=== PATIENT | male | born 1955 | race Caucasian/White ===

== ENCOUNTER 2018-12-03 05:40 | Inpatient (IN) | payer OTHER ==
[~2018-12-03 05:40] MED LIST: SOD CHLORIDE 0.9% 100 ML, TRANEXAMIC ACID 3,000 MG IRR; TRANEXAMIC ACID 1GM/100ML(PMX) 100 ML IVPB
[2018-12-03] MEDS: DEXAMETHASONE 1 MG TAB PO (06:26)
[2018-12-03] MEDS: GABAPENTIN 300 MG CAP PO ×2 (06:26→20:07)
[2018-12-03] MEDS: SOD CHLORIDE 0.9% 100 ML, TRANEXAMIC ACID 3,000 MG IRR (06:30)
[2018-12-03] MEDS: TRANEXAMIC ACID 1GM/100ML(PMX) 100 ML IVPB (06:30)
[2018-12-03] MEDS ORDERED: MIDAZOLAM 1 MG/ML 2 ML INJ (06:53)
[2018-12-03] MEDS ORDERED: FENTAnyl 50 MCG/ML VIAL (06:54)
[2018-12-03] MEDS ORDERED: SEVOFLURANE 15 MIN (07:00)
[2018-12-03] MEDS: TRANEXAMIC ACID 1GM/100ML(PMX) 100 ML (07:05)
[2018-12-03] MEDS: CEFAZOLIN 2 GM/50 ML (PMX) 50 ML IVPB (07:10)
[2018-12-03] MEDS ORDERED: CA CHLORIDE (GM) 10% 10 ML INJ (07:30)
[2018-12-03] MEDS ORDERED: THROMBIN 5000 UNIT VIAL (07:30)
[2018-12-03] MEDS ORDERED: POLYMYXIN/BACITRACIN 1L IRRIG (07:43)
[2018-12-03] MEDS: BUPIVACAINE 0.5% (SDV) 30 ML, morphine SULFATE (PF) 8 MG, EPINEPHrine 0.3 MG, CLONIDINE... IRR (07:58)
[2018-12-03] MEDS: POLYMYXIN/BACITRACIN 1L IRRIG IRR (07:59)
[2018-12-03] MEDS ORDERED: DEXAMETHASONE 4 MG/ML 5 ML INJ (08:30)
[2018-12-03] MEDS ORDERED: LIDOCAINE 2% (SDV) 5 ML INJ (08:30)
[2018-12-03] MEDS ORDERED: PROPOFOL 20 ML (08:30)
[2018-12-03] MEDS ORDERED: CEFAZOLIN 1 GM INJ (08:30)
[2018-12-03] MEDS ORDERED: ROCURONIUM 50 MG INJ (08:30)
[2018-12-03] MEDS ORDERED: ONDANSETRON 4 MG INJ (08:31)
[2018-12-03] MEDS ORDERED: NEOSTIGMINE 3 MG/3 ML SYRINGE (08:45)
[2018-12-03] MEDS ORDERED: GLYCOPYRROLATE 0.4 MG INJ (08:45)
[2018-12-03] MEDS ORDERED: PHENYLephrine (100 MCG/ML) 10ML SYG (08:47)
[2018-12-03] MEDS ORDERED: NACL 0.9% 3 ML SYG IV (09:00)
[2018-12-03] MEDS ORDERED: NON-FORMULARY/PATIENT OWN MED (Albuterol/Ipratropium* (Combivent Respimat*) 1 PUFF) INHALATION (09:00)
[2018-12-03] MEDS ORDERED: NON-FORMULARY/PATIENT OWN MED (Omeprazole* 20 MG) PO (09:00)
[2018-12-03] MEDS: SENNA/DOCUSATE NA (8.6MG/50MG) TAB PO ×2 (09:00→20:09)
[2018-12-03] MEDS ORDERED: ONDANSETRON 4 MG INJ IV ×2 (09:00→09:30)
[2018-12-03] MEDS ORDERED: ZOLPIDEM 5 MG TAB PO (09:00)
[2018-12-03] MEDS ORDERED: MAGNESIUM HYDROXIDE 30ML CUP PO (09:00)
[2018-12-03] MEDS: ALBUTEROL 18 GM INHALER INH ×2 (09:00→13:00)
[2018-12-03] MEDS ORDERED: DIPHENHYDRAMINE 50 MG INJ IV ×2 (09:00→09:30)
[2018-12-03] MEDS ORDERED: oxyCODONE 5 MG TAB PO (09:00)
[2018-12-03 09:19] LABS: ADD MAN DIFF? NO
[2018-12-03 09:21] LABS: BASOPHIL # 0.1 10^3/ul (0.0-0.1); BASOPHILS % 0.8 % (0.0-2.0); EOSINOPHILS # 0.3 10^3/ul (0.0-0.5); EOSINOPHILS % 3.1 % (0.0-7.0); HEMATOCRIT 37.6 % (42.0-52.0); LYMPHOCYTES # 2.1 10^3/ul (0.8-2.9); LYMPHOCYTES % 21.5 % (15.0-51.0); MEAN CORPUSCULAR HEMOGLOBIN 26.8 pg (29.0-33.0); MEAN CORPUSCULAR HGB CONC 31.9 g/dl (32.0-37.0); MEAN CORPUSCULAR VOLUME 84.1 fl (82.0-101.0); MEAN PLATELET VOLUME 9.7 fl (7.4-10.4); MONOCYTE # 0.3 10^3/ul (0.3-0.9); MONOCYTES % 2.9 % (0.0-11.0); NEUTROPHIL # 7.1 10^3/ul (1.6-7.5); NEUTROPHILS % 71.2 % (39.0-77.0); PLATELET COUNT 317 10^3/UL (140-415); RED BLOOD COUNT 4.47 10^6/ul (4.70-6.10); RED CELL DISTRIBUTION WIDTH 13.4 % (11.5-14.5)
[2018-12-03] MEDS ORDERED: ALBUTEROL 0.083% (NEB) 2.5 MG/3 ML AMP HHN (09:30)
[2018-12-03] MEDS ORDERED: LABETALOL HCL 20MG INJ IV (09:30)
[2018-12-03] MEDS ORDERED: METOCLOPRAMIDE 10 MG INJ IV (09:30)
[2018-12-03] MEDS ORDERED: FENTAnyl 50 MCG/ML VIAL IV ×3 (09:30)
[2018-12-03] MEDS ORDERED: hydrALAzine 20 MG INJ IV (09:30)
[2018-12-03] MEDS ORDERED: MIDAZOLAM 1 MG/ML 2 ML INJ IV (09:30)
[2018-12-03] MEDS ORDERED: HYDROmorphONE 1 MG/5 ML IV SYRINGE IV ×3 (09:30)
[2018-12-03] MEDS ORDERED: EPHEDrine 25 MG/5 ML SYG IV (09:30)
[2018-12-03] MEDS ORDERED: CEFAZOLIN 1 GM/50 ML (PMX) 0 ML IVPB (10:13)
[2018-12-03] MEDS ORDERED: ACETAMINOPHEN 1000MG/100ML IV 100 ML (10:13)
[2018-12-03] MEDS: MEPERIDINE 25 MG INJ IV (10:29)
[2018-12-03] MEDS: ACETAMINOPHEN 1000MG/100ML IV 100 ML IVPB ×2 (10:30→18:30)
[2018-12-03] MEDS: HYDROmorphONE 1 MG/ML SYG IV (11:46)
[2018-12-03] MEDS: AMLODIPINE 5 MG TAB PO (12:30)
[2018-12-03] MEDS: PANTOPRAZOLE (EC) 40 MG TAB PO (12:30)
[2018-12-03] MEDS: LOSARTAN 25 MG TAB PO (12:30)
[2018-12-03] MEDS: CEFAZOLIN 1 GM/50 ML (PMX) 50 ML IVPB ×2 (13:12→20:07)
[2018-12-03] MEDS: LACTATED RINGER'S 1,000 ML IV ×2 (13:12→23:25)
[2018-12-03] MEDS: DEXAMETHASONE 2 MG TAB PO ×2 (13:12→17:26)
[2018-12-03] MEDS: oxyCODONE 5 MG TAB PO (17:26)
[2018-12-03] MEDS: ALBUTEROL HFA 8 GM INHALER INH ×2 (17:27→20:00)
[2018-12-03] MEDS: IPRATROPIUM (HFA) 12.9 GM INHALER INH ×2 (17:27→20:06)
[2018-12-03] MEDS: RANITIDINE 150 MG TAB PO (20:07)
[2018-12-03] MEDS: CILOSTAZOL 100 MG TAB PO (20:09)
[2018-12-04] MEDS: DEXAMETHASONE 2 MG TAB PO ×2 (00:15→05:22)
[2018-12-04] MEDS: HYDROmorphONE 1 MG/ML SYG IV ×2 (00:47→11:00)
[2018-12-04] MEDS: ACETAMINOPHEN 1000MG/100ML IV 100 ML IVPB (03:16)
[2018-12-04] MEDS: PANTOPRAZOLE (EC) 40 MG TAB PO (05:22)
[2018-12-04] MEDS: CEFAZOLIN 1 GM/50 ML (PMX) 50 ML IVPB (05:22)
[2018-12-04 05:44] LABS: WHITE BLOOD COUNT 12.5 10^3/ul (4.8-10.8)
[2018-12-04 05:44] LABS: HEMATOCRIT 34.3 % (42.0-52.0); HEMOGLOBIN 10.9 g/dl (14.0-18.0); MEAN CORPUSCULAR HEMOGLOBIN 27.3 pg (29.0-33.0); MEAN CORPUSCULAR HGB CONC 31.8 g/dl (32.0-37.0); MEAN PLATELET VOLUME 10.2 fl (7.4-10.4); PLATELET COUNT 282 10^3/UL (140-415); RED BLOOD COUNT 3.99 10^6/ul (4.70-6.10)
[2018-12-04 06:06] LABS: ADD MAN DIFF? YES
[2018-12-04] MEDS: LACTATED RINGER'S 1,000 ML IV (07:31)
[2018-12-04] MEDS: LOSARTAN 25 MG TAB PO (09:00)
[2018-12-04] MEDS: AMLODIPINE 5 MG TAB PO (09:00)
[2018-12-04] MEDS ORDERED: ASPIRIN 81 MG TAB PO ×2 (09:00)
[2018-12-04] MEDS: ALBUTEROL HFA 8 GM INHALER INH ×2 (09:01→11:04)
[2018-12-04] MEDS: IPRATROPIUM (HFA) 12.9 GM INHALER INH ×2 (09:01→11:01)
[2018-12-04] MEDS: SENNA/DOCUSATE NA (8.6MG/50MG) TAB PO (09:01)
[2018-12-04] MEDS: CILOSTAZOL 100 MG TAB PO (09:05)
[2018-12-04] MEDS: oxyCODONE 5 MG TAB PO (15:21)
[2018-12-05] MEDS ORDERED: MAGNESIUM HYDROXIDE 30ML CUP PO (21:00)
== END 2018-12-04 15:22 | disposition home or self-care (01) | DRG 470 ==
LOC: REC 05:40 → MS1 10:43
PROVIDERS: Orthopaedic Surgery
PROC: 0SR904A Replacement of Right Hip Joint with Ceramic on Polyethylene Synthetic Substitute, Uncemented, Open Approach (ICD-10-PCS; principal; 2018-12-03 07:00)
DX: M16.11 Unilateral primary osteoarthritis, right hip (principal); I10 Essential (primary) hypertension
CPT/HCPCS: 72170; 73530; 85025; 86999; 87086; 88304; 88311; 97110; 97116; 97161